=== PATIENT | female | born 1995 | race Caucasian/White ===

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

== ENCOUNTER 2017-01-17 23:26 | Emergency (ER) | payer OTHER ==
--- NOTE | 2017-01-17 23:37 | PDOC ---
History of Present Illness - General History Source: Patient Exam Limitations: No Limitations - History of Present Illness Initial Comments: 01/17/17 23:56 The patient is a 21-year-old female with no significant past medical history, and presents to the emergency department with headache, neck stiffness, and upper extremity numbness and tingling today. She describes a headache at the temples that is pressure-like and worse on the left side of her head and when she is sleeping. She also notes neck stiffness and heaviness. She states she was here 3 weeks ago for the same issue and was given a muscle relaxant and ibuprofen. She has taken the medication but her headache has returned. She also reports weakness and tingling in her upper extremities, worse on the left side. The patient denies chest pain, shortness of breath, and dizziness. The patient denies fever, chills, nausea, vomit, diarrhea and constipation. The patient denies dysuria, frequency, urgency and hematuria. LMP: Pt denies having a menstrual cycle Allergies: NKDA Past Surgical History: None reported Social History: No toxic habits reported <Sierra Garcia - Last Filed: 01/17/17 23:56> <Shyla Sinclair - Last Filed: 01/18/17 02:38> - General Stated Complaint: NUMBNESS Time Seen by Provider: 01/17/17 23:37 Past History <Sierra Garcia - Last Filed: 01/17/17 23:56> - Immunization History Immunization Up to Date: Yes - Suicide/Smoking/Psychosocial Hx Smoking Status: No Smoking History: Never smoked Have you smoked in the past 12 months: No Number of Cigarettes Smoked Daily: 0 Hx Alcohol Use: No Drug/Substance Use Hx: Yes (Marijuana) Substance Use Type: Marijuana <Shyla Sinclair - Last Filed: 01/18/17 02:38> - Past Medical History Allergies/Adverse Reactions: Allergies Allergy/AdvReac Type Severity Reaction Status Date / Time No Known Allergies Allergy Verified 01/17/17 23:53 Home Medications: Ambulatory Orders Cyclobenzaprine HCl [Flexeril 10 mg] 10 mg PO BID PRN #14 tablet 12/14/16 Ibuprofen [Motrin -] 400 mg PO QID PRN #28 tablet 12/14/16 Review of Systems - Review of Systems Able to Perform ROS?: Yes Comments:: 01/17/17 23:57 GENERAL/CONSTITUTIONAL: No fever or chills. No weakness. HEAD, EYES, EARS, NOSE AND THROAT: No change in vision. No ear pain or discharge. No sore throat. CARDIOVASCULAR: No chest pain or shortness of breath. RESPIRATORY: No cough, wheezing, or hemoptysis. GASTROINTESTINAL: No nausea, vomiting, diarrhea or constipation. GENITOURINARY: No dysuria, frequency, or change in urination. MUSCULOSKELETAL: No joint or muscle swelling or pain. No back pain. (+) Neck stiffness. SKIN: No rash NEUROLOGIC: (+) Headache. No vertigo, loss of consciousness, or change in strength. (+) Upper extremity paresthesia. ENDOCRINE: No increased thirst. No abnormal weight change. HEMATOLOGIC/LYMPHATIC: No anemia, easy bleeding, or history of blood clots. ALLERGIC/IMMUNOLOGIC: No hives or skin allergy. <Sierra Garcia - Last Filed: 01/17/17 23:56> *Physical Exam - Physical Exam Comments: 01/17/17 23:57 GENERAL: Awake, alert, and fully oriented, in no acute distress HEAD: No signs of trauma EYES: PERRLA, EOMI, sclera anicteric, conjunctiva clear ENT: Auricles normal inspection, hearing grossly normal, nares patent, oropharynx clear without exudates. Moist mucosa NECK: Normal ROM, supple, no lymphadenopathy, JVD, or masses LUNGS: Breath sounds equal, clear to auscultation bilaterally. No wheezes, and no crackles HEART: Regular rate and rhythm, normal S1 and S2, no murmurs, rubs or gallops ABDOMEN: Soft, nontender, normoactive bowel sounds. No guarding, no rebound. No masses EXTREMITIES: Normal range of motion, no edema. No clubbing or cyanosis. No cords, erythema, or tenderness NEUROLOGICAL: No C-spine tenderness or paraspinal and midline tenderness. Cranial nerves II through XII grossly intact. Normal speech, normal gait SKIN: Warm, Dry, normal turgor, no rashes or lesions noted. <Sierra Garcia - Last Filed: 01/17/17 23:56> ED Treatment Course - LABORATORY CBC & Chemistry Diagram: 01/18/17 00:15 01/18/17 00:15 <Shyla Sinclair - Last Filed: 01/18/17 02:38> Medical Decision Making - Medical Decision Making 01/17/17 23:49 a/p: 21yo female presents for eval of DAVIS -recent hx of davis that she was taking flexeril and motrin for -ran out of flexeril -neuro exam without focal deficits -poss anxiety/acute stress reaction to cause numbness -will check labs and re-eval -will medicate. 01/18/17 01:25 pt states davis resolved. feeling better. 01/18/17 01:25 ambulatory in the ED with a steady gait 01/18/17 02:35 pt feeling much better. Has appt to see [facility] on tuesday. Discussed all lab results. Pt states she has only had 1 menstrual cycle since she was 15. Discussed the need to keep her [facility] appt. Answered all questions. Pt feeling better. Stable for d/c to home. Discussed need for follow up with PMD. <Shyla Sinclair - Last Filed: 01/18/17 02:38> *DC/Admit/Observation/Transfer - Attestations Scribe Attestion: 01/18/17 00:00 Documentation prepared by Sierra Garcia, acting as medical editor for Shyla Sinclair DO. <Sierra Garcia - Last Filed: 01/17/17 23:56> - Discharge Dispostion Admit: No - Attestations Physician Attestion: 01/18/17 02:37 I, Dr. Shyla Sinclair DO, attest that this document has been prepared under my direction and personally reviewed by me in its entirety. I further attest, that it accurately reflects all work, treatment, procedures and medical decision -making performed by me. <Shyla Sinclair - Last Filed: 01/18/17 02:38> Diagnosis at time of Disposition: Tension headache - Discharge Dispostion Disposition: HOME Condition at time of disposition: Stable - Referrals Referrals: Ainsley Brooks MD [Primary Care Provider] - Rubin Lorenzo MD [Staff Physician] - - Patient Instructions Printed Discharge Instructions: DI for Headache Additional Instructions: Please keep your appt with HE[facility] SERVICE WORKER for tuesday. Please follow up with your PMD. Please return to the ED with any further concerns.
[2017-01-17] MEDS ORDERED: ACETAMINOPHEN/CAFFEINE/BUTALBITAL 1 TAB PO ONE (23:46)
[2017-01-17] MEDS ORDERED: METOCLOPRAMIDE HCL INJECTION 10 MG/2 ML VIAL IVPUSH ONE (23:46)
[2017-01-17] MEDS ORDERED: SODIUM CHLORIDE 0.9% 1000 ML INFUS.BAG IV ONE (23:46)
[2017-01-18] MEDS ORDERED: ACETAMINOPHEN/CAFFEINE/BUTALBITAL 1 TAB ONE
[2017-01-18] MEDS ORDERED: METOCLOPRAMIDE HCL INJECTION 10 MG/2 ML VIAL ONE
[2017-01-18 00:02] VITALS: BP 150/82; PULSE 72; TEMP 97.9; BMI 37.3
[2017-01-18 00:25] LABS: BASOPHIL 0.4 % (0-2.0); EOSINOPHIL 0.5 % (0-4.5); MCH 29.5 pg (25.7-33.7); MCHC 33.9 g/dl (32.0-36.0); MEAN CELL VOLUME 86.9 fl (80-96); MEAN PLT VOLUME 7.7 fl (7.5-11.1); NEUTROPHILS 72.3 % (42.8-82.8); PLATELET COUNT 287 K/MM3 (134-434); RDW 12.9 % (11.6-15.6); WHITE BLOOD COUNT 11.8 K/mm3 (4.0-10.0)
[2017-01-18 00:58] LABS: URINE APPEARANCE CLEAR; URINE BILIRUBIN NEGATIVE (NEGATIVE); URINE BLOOD NEGATIVE (NEGATIVE); URINE COLOR STRAW; URINE GLUCOSE (UA) NEGATIVE (NEGATIVE); URINE KETONE NEGATIVE (NEGATIVE); URINE NITRITE NEGATIVE (NEGATIVE); URINE PROTEIN NEGATIVE (NEGATIVE); URINE UROBILINOGEN NEGATIVE mg/dL (0.2-1.0)
[2017-01-18 01:01] LABS: ALBUMIN 4.2 g/dl (3.4-5.0); ANION GAP 7 (8-16); BILIRUBIN,TOTAL 0.5 mg/dL (0.2-1.0); CALCIUM 8.5 mg/dL (8.5-10.1); CO2 29 mmol/L (21-32); CREATININE 0.5 mg/dL (0.55-1.02); GLUCOSE,RANDOM 89 mg/dL (74-106); SGPT/ALT 33 U/L (12-78); TOT PROT 8.3 g/dl (6.4-8.2)
[2017-01-18 01:02] LABS: ALK PHOS 102 U/L (45-117)
[2017-01-18 01:03] LABS: SGOT/AST 22 U/L (15-37)
[2017-01-18 10:32] LABS: URINE LEUK ESTERASE TRACE (NEGATIVE)
[2017-01-18 10:33] LABS: URINE BACTERIA FEW /hpf (NEGATIVE); URINE RBC 0-3 /hpf (0-3); URINE WBC 0-3 /hpf (3-5)
== END 2017-01-18 02:42 | disposition home or self-care (01) ==
LOC: JER 23:26
DX: G44.209 Tension-type headache, unspecified, not intractable (principal)
CPT/HCPCS: 36415; 80053; 81003; 81015; 84703; 85025; 99283-25

== ENCOUNTER 2017-01-21 21:21 | Emergency (ER) | payer OTHER ==
[2017-01-21 21:28] VITALS: BP 149/59; PULSE 103; TEMP 98; BMI 36.6
--- NOTE | 2017-01-21 21:37 | PDOC ---
History of Present Illness <Linnea Gray - Last Filed: 01/21/17 21:55> - General History Source: Patient Exam Limitations: No Limitations - History of Present Illness Initial Comments: 01/21/17 21:59 The patient is a 21 year old female, with a significant past medical history of frequent headaches, who presents to the emergency department with a headache for approximately 2 weeks. The patient reports her headache is localized at the center of her head, and describes it as a pressure. Patient reports taking 1 Ibuprofen earlier today with no relief of headache. She reports associated weakness, but denies any dizziness, lightheadedness, numbness, tingling, changes in vision, neck or back pain. Patient reports presenting to the ED with similar symptoms on 01/17/17, where she was given Ibuprofen with relief of headache. Patient denies any chest pain, shortness of breath, diaphoresis, or palpitations. She denies any fever, chills, nausea, vomiting, diarrhea, constipation, or changes in urination patterns. Patient denies having a menstrual cycle(only recalls MP at age 15). Patient reports following up with [facility] on 01/19/17, where she had bloodwork done and has not yet received results for. Allergies: NKDA Past Surgical History: None reported. Social History: Non smoker. No ETOH or recreational drug use. <Aline Garcia - Last Filed: 01/21/17 22:01> - General Chief Complaint: Headache Stated Complaint: HEADACHE Time Seen by Provider: 01/21/17 21:34 Past History - Past Medical History Anemia: No Asthma: No Cancer: No Cardiac Disorders: No CVA: No COPD: No DVT: No Dementia: No Diabetes: No Dialysis: No GI Disorders: No Disorders: No HTN: No Hypercholesterolemia: No Kidney Stones: No Liver Disease: No Psychiatric Problems: No Seizures: No Thyroid Disease: No Lung CA: No - Immunization History Immunization Up to Date: Yes - Suicide/Smoking/Psychosocial Hx Smoking Status: No Smoking History: Never smoked Have you smoked in the past 12 months: No Number of Cigarettes Smoked Daily: 0 Hx Alcohol Use: No Drug/Substance Use Hx: Yes (Marijuana) Substance Use Type: Marijuana <Linnea Gray - Last Filed: 01/21/17 21:55> <Aline Garcia - Last Filed: 01/21/17 22:01> - Past Medical History Allergies/Adverse Reactions: Allergies Allergy/AdvReac Type Severity Reaction Status Date / Time No Known Allergies Allergy Verified 01/21/17 21:28 Home Medications: Ambulatory Orders Cyclobenzaprine HCl [Flexeril 10 mg] 10 mg PO BID PRN #14 tablet 12/14/16 Ibuprofen [Motrin -] 400 mg PO QID PRN #28 tablet 12/14/16 Review of Systems - Review of Systems Able to Perform ROS?: Yes Comments:: 01/21/17 21:59 GENERAL/CONSTITUTIONAL: Yes weakness. No fever or chills. HEAD, EYES, EARS, NOSE AND THROAT: No change in vision. No ear pain or discharge. No sore throat. CARDIOVASCULAR: No chest pain or shortness of breath. RESPIRATORY: No cough, wheezing, or hemoptysis. GASTROINTESTINAL: No nausea, vomiting, diarrhea or constipation. GENITOURINARY: No dysuria, frequency, or change in urination. MUSCULOSKELETAL: No joint or muscle swelling or pain. No neck or back pain. SKIN: No rash NEUROLOGIC: Yes headache. No numbness, tingling, vertigo, loss of consciousness. ENDOCRINE: No increased thirst. No abnormal weight change. HEMATOLOGIC/LYMPHATIC: No anemia, easy bleeding, or history of blood clots. ALLERGIC/IMMUNOLOGIC: No hives or skin allergy. <Aline Garcia - Last Filed: 01/21/17 22:01> *Physical Exam - Vital Signs Last Vital Signs Temp Pulse Resp BP Pulse Ox 98 F 103 H 20 149/59 100 01/21/17 21:26 01/21/17 21:26 01/21/17 21:26 01/21/17 21:26 01/21/17 21:26 <Linnea Gray - Last Filed: 01/21/17 21:55> - Vital Signs Last Vital Signs Temp Pulse Resp BP Pulse Ox 98 F 103 H 20 149/59 100 01/21/17 21:26 01/21/17 21:26 01/21/17 21:26 01/21/17 21:26 01/21/17 21:26 - Physical Exam Comments: 01/21/17 22:00 GENERAL: Morbidly obese. The patient is awake, alert, and fully oriented, in no acute distress. HEAD: Normal with no signs of trauma. EYES: Pupils equal, round and reactive to light, extraocular movements intact, sclera anicteric, conjunctiva clear with no pallor. ENT: Ears normal, nares patent, oropharynx clear without exudates. Moist mucous membranes. NECK: Normal range of motion, supple without lymphadenopathy, JVD, or masses. LUNGS: Breath sounds equal, clear to auscultation bilaterally. No wheeze/ crackles. HEART: Regular rate and rhythm, normal S1 and S2 without murmur or rub. ABDOMEN: Soft/nontender/nondistended. BS wnl. No guarding or rebound. No palpable masses. No hepatosplenomegaly. EXTREMITIES: Normal range of motion, no edema. No clubbing or cyanosis. No cords, erythema, or tenderness. NEUROLOGICAL: Cranial nerves II through XII grossly intact. Normal speech, normal gait. PSYCH: Normal mood, normal affect. SKIN: Warm, Dry, normal turgor, no rashes or lesions noted. <Aline Garcia - Last Filed: 01/21/17 22:01> Medical Decision Making - Medical Decision Making 01/21/17 21:55PM PT COMES WITH TENSION HEADACHE, SHE HAS BEEN TAKING 200 MG MOTRIN AND SHE IS OVERWEIGHT AND LIKELY NEEDS 400 TO 600MG FOR HEADACHE CONTROL. PT IS ANXIOUS AND SHE HAS BEEN HERE IN THE PAST RECENTLY FOR THE SAME. SHE HAS AN APPOINTMENT [facility] LATER THIS WEEK. SHE WILL BE SENT HOME WITH A COCKTAIL OF MEDS. HOME WITH REGULAR OTC MEDS. <Linnea Gray - Last Filed: 01/21/17 21:55> *DC/Admit/Observation/Transfer - Discharge Dispostion Admit: No <Linnea Gray - Last Filed: 01/21/17 21:55> - Attestations Scribe Attestion: 01/21/17 22:01 Documentation prepared by Aline Garcia, acting as registered medical assistant for Linnea Gray MD. <Aline Garcia - Last Filed: 01/21/17 22:01> Diagnosis at time of Disposition: Panic attack, Tension headache - Discharge Dispostion Disposition: HOME Condition at time of disposition: Stable - Referrals Referrals: Rubin Lorenzo MD [Staff Physician] -
[2017-01-21] MEDS ORDERED: METOCLOPRAMIDE HCL INJECTION 10 MG/2 ML VIAL ONE (21:48)
[2017-01-21] MEDS ORDERED: ACETAMINOPHEN/CAFFEINE/BUTALBITAL 1 TAB ONE (21:48)
[2017-01-21] MEDS ORDERED: diphenhydrAMINE HCL 25 MG CAPSULE (FP) PO ONE ×2 (21:49→21:50)
[2017-01-21] MEDS ORDERED: ACETAMINOPHEN/CAFFEINE/BUTALBITAL 1 TAB PO ONE (21:50)
[2017-01-21] MEDS ORDERED: METOCLOPRAMIDE HCL INJECTION 10 MG/2 ML VIAL IM ONE (21:51)
== END 2017-01-21 22:29 | disposition home or self-care (01) ==
LOC: JER 21:21
DX: G44.209 Tension-type headache, unspecified, not intractable (principal); F41.0 Panic disorder [episodic paroxysmal anxiety]
CPT/HCPCS: 99281-25

== ENCOUNTER 2017-01-28 02:15 | Emergency (ER) | payer OTHER ==
[2017-01-28 03:06] VITALS: BP 143/73; PULSE 65; TEMP 98.1; BMI 37.3
--- NOTE | 2017-01-28 03:31 | PDOC ---
History of Present Illness - General Chief Complaint: Headache Stated Complaint: HEADACHE Time Seen by Provider: 01/28/17 02:57 History Source: Patient - History of Present Illness Initial Comments: 01/28/17 03:30 Patient is a 21 y.o. female with no known PMH who presents with a 3 week h/o frontal, tightening headaches that start approximately 30 minutes after she wakes up and continue throughout the day. Patient denies any associated chest pain, shortness of breath, visual changes, altered mental status or vomiting. Patient states Motrin usually relieves her headaches however tonight she woke up from sleep with her headache. Patient notes she has an appointment with a neurologist tomorrow for follow up. Patient further notes she has never had a menstrual period and she was recently evaluated by a justice professor including ultrasound. Past History - Past Medical History Allergies/Adverse Reactions: Allergies Allergy/AdvReac Type Severity Reaction Status Date / Time No Known Allergies Allergy Verified 01/21/17 21:28 Home Medications: Ambulatory Orders Ibuprofen [Motrin -] 400 mg PO QID PRN #28 tablet 12/14/16 Anemia: No Asthma: No Cancer: No Cardiac Disorders: No CVA: No COPD: No DVT: No Dementia: No Diabetes: No Dialysis: No GI Disorders: No Disorders: No HTN: No Hypercholesterolemia: No Kidney Stones: No Liver Disease: No Psychiatric Problems: No Seizures: No Thyroid Disease: No Lung CA: No - Immunization History Immunization Up to Date: Yes - Suicide/Smoking/Psychosocial Hx Smoking Status: No Smoking History: Never smoked Have you smoked in the past 12 months: No Number of Cigarettes Smoked Daily: 0 Information on smoking cessation initiated: No Hx Alcohol Use: No Drug/Substance Use Hx: No Substance Use Type: Marijuana Review of Systems - Review of Systems Constitutional: No: Chills, Fever HEENTM: No: Blurred Vision, Double Vision Respiratory: No: Shortness of Breath Cardiac (ROS): No: Chest Pain All Other Systems: Reviewed and Negative *Physical Exam - Vital Signs Last Vital Signs Temp Pulse Resp BP Pulse Ox 98.1 F 65 17 143/73 99 01/28/17 03:03 01/28/17 03:03 01/28/17 03:03 01/28/17 03:03 01/28/17 03:03 - Physical Exam General Appearance: Yes: Nourished, Obese Respiratory/Chest: positive: Lungs Clear Cardiovascular: positive: S1, S2 Neurologic: positive: air export coordinator II-XII NML intact, Fully Oriented, Alert, Motor Strength 5/5 Medical Decision Making - Medical Decision Making 01/28/17 03:51 Patient is a 21 y.o. female who presents with headache consistent with her tension headaches. As patient has a h/o of similar headaches and no recent trauma clinical suspicion for acute intracranial process is low. PLAN: 1. Toradol 2. Referral to endocrinology @ discharge as patient possibly has PCOS with hormonal dysregulation contributing to her headaches Reassess 01/28/17 05:29 Patient awakened from sleep, states pain is resolved. Counseled on importance of keeping neurologist appointment today. Discharged with endocrinology referral and return precautions. *DC/Admit/Observation/Transfer Diagnosis at time of Disposition: Headache, tension-type - Discharge Dispostion Disposition: HOME Condition at time of disposition: Good Admit: No - Referrals Referrals: Luis Alberto Arauz MD [Staff Physician] - - Patient Instructions Additional Instructions: You were evaluated and treated today for a headache. Please keep your previously scheduled neurology appointment later today as they will be able to provide you with effective diagnosis and treatment of your repeated headaches. Also, as you expressed a concern for non-onset of menstruation, we are providing you with contact information for an jewelry mechanic. Please return to the Emergency Department for any worsening or concerning symptoms.
[2017-01-28] MEDS ORDERED: KETOROLAC TROMETHAMINE 60 MG/2 ML VIAL IM ONE (03:34)
[2017-01-28] MEDS ORDERED: KETOROLAC TROMETHAMINE 60 MG/2 ML VIAL ONE (03:36)
--- NOTE | 2017-01-28 03:40 | PDOC ---
Attending Attestation - Resident Resident Name: Rosa Beaver - ED Attending Attestation I have performed the following: I have examined & evaluated the patient, The case was reviewed & discussed with the resident, I agree w/resident's findings & plan, Exceptions are as noted - HPI HPI: 01/28/17 03:38 headache for several weeks. Seeing neurology in the morning. c/o pain - Physicial Exam PE: 01/28/17 03:39 *Physical Exam General Appearance: Yes: Appropriately Dressed. No: Apparent Distress, Intoxicated HEENT: positive: EOMI, [place], Normal ENT Inspection, Normal Voice, TMs Normal, Pharynx Normal. negative: Pale Conjunctivae, Photophobia, Scleral Icterus (R), Scleral Icterus (L) Neck: positive: Trachea midline, Normal Thyroid, Supple. negative: Tender, Rigid, Carotid bruit, Stridor, Lymphadenopathy (R), Lymphadenopathy (L), Thyromegaly Respiratory/Chest: positive: Lungs Clear, Normal Breath Sounds. negative: Chest Tender, Respiratory Distress, Accessory Muscle Use, Labored Respiration, RES, Crackles, Rales, Rhonchi, Stridor, Wheezing, Dullness Cardiovascular: positive: Regular Rhythm, Regular Rate, S1, S2. negative: Edema , JVD, Murmur, Bradycardia, Tachycardia Vascular Pulses: Dorsalis-Pedis (R): 2+, Doralis-Pedis (L): 2+ Gastrointestinal/Abdominal: positive: Normal Bowel Sounds, Flat, Soft. negative : Tender, Organomegaly, Pulsatile Mass, Increased Bowel Sounds, Decreased BS, Distended, Guarding, Rebound, Hernia, Hepatomegaly, Spleenomegaly Lymphatic: negative: Adenopathy, Tenderness Musculoskeletal: positive: Normal Inspection. negative: CVA Tenderness, Decreased Range of Motion Extremity: positive: Normal Capillary Refill, Normal Inspection, Normal Range of Motion, Pelvis Stable. negative: Tender, Pedal Edema, Swelling, Erythema Integumentary: positive: Normal Color, Dry, Warm. negative: Cyanotic, Erythema , Jaundice, Rash Neurologic: positive: machine engraver II-XII NML intact, Fully Oriented, Alert, Normal Mood/ Affect, Motor Strength 5/5. negative: EOM Palsy, Facial Droop, Sensory Deficit - Medical Decision Making 01/28/17 05:36 Pt feeling better and will be discharge to follow up with her neurology appointment. Pt referred to endo for evaluation of lack of menses
== END 2017-01-28 06:12 | disposition home or self-care (01) ==
LOC: JER 02:15
PROC: 3E0233Z Introduction of Anti-inflammatory into Muscle, Percutaneous Approach (ICD-10-PCS; principal; 2017-01-28)
DX: G44.209 Tension-type headache, unspecified, not intractable (principal)
CPT/HCPCS: 96372; 99281-25

== ENCOUNTER 2018-03-26 20:37 | Emergency (ER) | payer OTHER ==
[2018-03-26 20:41] VITALS: BP 127/55; PULSE 60; TEMP 97.9; BMI 32.4
[2018-03-26] MEDS ORDERED: ACETAMINOPHEN 500 MG TABLET (FP) PO ONE (20:54)
[2018-03-26] MEDS ORDERED: ACETAMINOPHEN 500 MG TABLET (FP) ONE ×2 (20:58→21:11)
--- NOTE | 2018-03-26 20:58 | PDOC ---
History of Present Illness - General Chief Complaint: Headache Stated Complaint: HEADACHE Time Seen by Provider: 03/26/18 20:53 - History of Present Illness Initial Comments: 03/26/18 20:57 22-year-old female without comorbidities presents for evaluation of headaches times one week. Unrelieved with Tylenol and Motrin. She has never had headaches like this in her life. No systemic symptoms. Past History - Past Medical History Allergies/Adverse Reactions: Allergies Allergy/AdvReac Type Severity Reaction Status Date / Time No Known Allergies Allergy Verified 03/26/18 20:41 Home Medications: Ambulatory Orders Acetaminophen [Tylenol -] 1,000 mg PO Q6H 03/26/18 Anemia: No Asthma: No Cancer: No Cardiac Disorders: No CVA: No COPD: No DVT: No Dementia: No Diabetes: No Dialysis: No GI Disorders: No Disorders: No HTN: No Hypercholesterolemia: No Kidney Stones: No Liver Disease: No Psychiatric Problems: No Seizures: No Thyroid Disease: No Lung CA: No - Immunization History Immunization Up to Date: Yes - Suicide/Smoking/Psychosocial Hx Smoking Status: No Smoking History: Never smoked Have you smoked in the past 12 months: No Number of Cigarettes Smoked Daily: 0 Hx Alcohol Use: No Drug/Substance Use Hx: No Substance Use Type: None, Marijuana Review of Systems - Review of Systems Constitutional: No: Fever Neurological: Yes: Headache *Physical Exam - Vital Signs Last Vital Signs Temp Pulse Resp BP Pulse Ox 97.9 F 60 18 127/55 L 100 03/26/18 20:39 03/26/18 20:39 03/26/18 20:39 03/26/18 20:39 03/26/18 20:39 - Physical Exam Comments: 03/26/18 20:58 HEAD: NC/AT EYES: Conjuntiva clear EOMI PERRL Ears: Canals and TM's normal NOSE: No d/c THROAT: Moist mucous membrances, oral pharanx clear, uvula midline NECK: Supple without adenopathy CARDIAC: S1 S2 LUNGS: CTA Full and Equal breath sounds ABDOMEN: Soft NT ND MS: Full ROM in all joints without edema NEUROLOGIC: No gross sensory or motor deficits, NVID SKIN: Normal color and temperature no lesions or rashes Moderate Sedation - Procedure Monitoring Vital Signs: Procedure Monitoring Vital Signs Temperature 97.9 F 03/26/18 20:39 Pulse Rate 60 03/26/18 20:39 Respiratory Rate 18 03/26/18 20:39 Blood Pressure 127/55 L 03/26/18 20:39 O2 Sat by Pulse Oximetry (%) 100 03/26/18 20:39 *DC/Admit/Observation/Transfer Diagnosis at time of Disposition: Headache - Discharge Dispostion Disposition: HOME Condition at time of disposition: Stable Decision to Admit order: No - Referrals Referrals: Brandon Green MD [Staff Physician] - - Patient Instructions Printed Discharge Instructions: DI for Headache Additional Instructions: Please take Tylenol Motrin as directed for headache. Do not take any further anti-inflammatories until tomorrow. Return to the emergency room should symptoms worsen or go unresolved. Follow-up with neurology in 2-3 days for further evaluation and treatment options of your headaches - Post Discharge Activity
[2018-03-26] MEDS ORDERED: KETOROLAC TROMETHAMINE 60 MG/2 ML VIAL IM ONE (22:27)
[2018-03-26] MEDS ORDERED: KETOROLAC TROMETHAMINE 60 MG/2 ML VIAL ONE (22:31)
== END 2018-03-26 23:16 | disposition home or self-care (01) ==
LOC: JERFT 20:37
PROC: 3E0233Z Introduction of Anti-inflammatory into Muscle, Percutaneous Approach (ICD-10-PCS; principal; 2018-03-26)
DX: R51 Headache (principal)
CPT/HCPCS: 70450-TC; 84703; 99281-25

== ENCOUNTER 2018-06-15 21:18 | Emergency (ER) | payer OTHER ==
[2018-06-15] MEDS ORDERED: IBUPROFEN 600 MG TABLET (FP) PO ONE ×2 (21:28→21:34)
--- NOTE | 2018-06-15 21:28 | PDOC ---
Rapid Medical Evaluation Time Seen by Provider: 06/15/18 21:27 Medical Evaluation: Allergies Allergy/AdvReac Type Severity Reaction Status Date / Time No Known Allergies Allergy Verified 03/26/18 20:41 06/15/18 21:27 I performed a brief in-person evaluation of this patient. Chief complaint: Fever and headache x 2 days Pertinent physical exam findings: T 102.5. No focal neurologic deficits. Well- hydrated and well-appearing. I have ordered the following: Rapid flu, pgu, ibuprofen Patient will proceed to the ED for further evaluation. 06/15/18 21:29 Discharge Disposition - Diagnosis Flu-like symptoms - Referrals - Patient Instructions - Post Discharge Activity
[2018-06-15 21:29] VITALS: BP 126/66; PULSE 102; TEMP 102.5; BMI 31.6
--- NOTE | 2018-06-15 22:46 | PDOC ---
History of Present Illness - General Chief Complaint: Cold Symptoms Stated Complaint: FEVER/HEADACHE Time Seen by Provider: 06/15/18 21:27 History Source: Patient Exam Limitations: No Limitations - History of Present Illness Initial Comments: 06/15/18 22:44 HISTORY OF PRESENT ILLNESS: This is a 22-year-old woman presents emergency Department with 3 days of headaches, fever and sore throat. Patient reports she' s been taking [id number] antipyretic medication which is helped with the fevers and pain. Patient reports the throat started as a faints irritation but is slowly graduated to a sharp scratching sensation. Patient denies any change in her voice. Patient is eating and drinking normally without any difficulty. No recent travel or sick contacts. PAST MEDICAL HISTORY: Denies past medical history SURGICAL HISTORY: Denies ALLERGIES: No known drug allergies REVIEW OF SYSTEMS General/Constitutional: (+) fever or chills. Denies weakness, weight change. HEENT: Denies change in vision. Denies ear pain or discharge. (+) sore throat. Cardiovascular: Denies chest pain or shortness of breath. Respiratory: Denies cough, wheezing, or hemoptysis. Gastrointestinal: Denies nausea, vomiting, diarrhea or constipation. Denies rectal bleeding. Genitourinary: Denies dysuria, frequency, or change in urination. Musculoskeletal: Denies joint or muscle swelling or pain. Denies neck or back pain. Skin and breasts: Denies rash or easy bruising. Neurologic: Frontal headache. Denies vertigo, loss of consciousness, or loss of sensation. Psychiatric: Denies depression or anxiety. Endocrine: Denies increased thirst. Denies abnormal weight change. Hematologic/Lymphatic: Denies anemia, easy bleeding, or history of blood clots. Allergic/Immunologic: Denies hives or skin allergy. Denies latex allergy. PHYSICAL EXAM General Appearance: Well-appearing, appropriately dressed. No apparent distress , no intoxication. HEENT: EOMI, PERRLA, normal ENT inspection, normal voice, TMs normal. No conjunctival pallor. No photophobia, scleral icterus. +2 erythematous tonsils present bilaterally with right greater than left. Exudate present on the right tonsil. There are no lesions within the oropharynx. Neck: Supple. Trachea midline. No tenderness, rigidity, carotid bruit, stridor , or thyromegaly. Tender anterior cervical lymphadenopathy present. Respiratory/Chest: Lungs CTAB. No shortness of breath, chest tenderness, respiratory distress, accessory muscle use. No crackles, rales, rhonchi, stridor , wheezing, dullness Cardiovascular: RRR. S1, S2. No JVD, murmur, bradycardia, tachycardia. Vascular Pulses: Dorsalis-Pedis (R): 2+, Dorsalis-Pedis (L): 2+ Gastrointestinal/Abdominal: Normal bowel sounds. Abdomen soft, non-distended. No tenderness or rebound tenderness. No organomegaly, pulsatile mass, guarding, hernia, hepatomegaly, splenomegaly. Lymphatic: No adenopathy, tenderness. Musculoskeletal/Extremities: Normal inspection. FROM of all extremities, normal capillary refill. Pelvis Stable. No CVA tenderness. No tenderness to extremities, pedal edema, swelling, erythema or deformity. Integumentary: Appropriate color, dry, warm. No cyanosis, erythema, jaundice or rash Neurologic: mental hygienist II-XII intact. Fully oriented, alert. Appropriate mood/affect. Motor strength 5/5. No appreciable EOM palsy, facial droop or sensory deficit. Past History - Past Medical History Allergies/Adverse Reactions: Allergies Allergy/AdvReac Type Severity Reaction Status Date / Time No Known Allergies Allergy Verified 03/26/18 20:41 Home Medications: Ambulatory Orders Acetaminophen [Tylenol -] 1,000 mg PO Q6H 03/26/18 Amoxicillin - [Amoxicillin 500mg Capsule -] 500 mg PO BID #20 capsule 06/15/18 Anemia: No Asthma: No Cancer: No Cardiac Disorders: No CVA: No COPD: No DVT: No Dementia: No Diabetes: No Dialysis: No GI Disorders: No Disorders: No HTN: No Hypercholesterolemia: No Kidney Stones: No Liver Disease: No Psychiatric Problems: No Seizures: No Thyroid Disease: No Lung CA: No - Immunization History Immunization Up to Date: Yes - Suicide/Smoking/Psychosocial Hx Smoking Status: No Smoking History: Never smoked Have you smoked in the past 12 months: No Number of Cigarettes Smoked Daily: 0 Hx Alcohol Use: No Drug/Substance Use Hx: No Substance Use Type: None, Marijuana *Physical Exam - Vital Signs Last Vital Signs Temp Pulse Resp BP Pulse Ox 102.5 F H 102 H 18 126/66 100 06/15/18 21:26 06/15/18 21:26 06/15/18 21:26 06/15/18 21:26 06/15/18 21:26 Moderate Sedation - Procedure Monitoring Vital Signs: Procedure Monitoring Vital Signs Temperature 102.5 F H 06/15/18 21:26 Pulse Rate 102 H 06/15/18 21:26 Respiratory Rate 18 06/15/18 21:26 Blood Pressure 126/66 06/15/18 21:26 O2 Sat by Pulse Oximetry (%) 100 06/15/18 21:26 ED Treatment Course - ADDITIONAL ORDERS Additional order review: Laboratory Results 06/15/18 21:36 Urine HCG, Qual Negative - Medications Given in the ED: ED Medications Discontinued Medications Generic Name Dose Route Start Last Admin Trade Name Oleg PRN Reason Stop Dose Admin Ibuprofen 600 mg 06/15/18 21:28 06/15/18 21:35 Motrin - PO 06/15/18 21:29 600 mg ONCE ONE Administration Medical Decision Making - Medical Decision Making 06/15/18 22:40 A/P: 22-year-old woman with pharyngitis for 3 days +2 tonsils present with right tonsil greater than the left. Exudate present to the right tonsil Uvula midline Tender anterior cervical lymphadenopathy present Halitosis present Clinically the patient has streptococcal pharyngitis. I will send a culture but even if rapid strep is negative I would treat based on clinical presentation. Results of physical exam have been discussed with the patient was verbalized understanding of discharge instructions. Prescription for amoxicillin as been sent the patient's preferred pharmacy. *DC/Admit/Observation/Transfer Diagnosis at time of Disposition: Pharyngitis Qualifiers: Pharyngitis/tonsillitis etiology: unspecified etiology Qualified Code(s): J02.9 - Acute pharyngitis, unspecified - Discharge Dispostion Disposition: HOME Condition at time of disposition: Stable Decision to Admit order: No - Prescriptions Prescriptions: Amoxicillin - [Amoxicillin 500mg Capsule -] 500 mg PO BID #20 capsule - Referrals Referrals: ON STAFF,NOT [Primary Care Provider] - - Patient Instructions Additional Instructions: Take amoxicillin as prescribed. Salt water garggles. Throw away your toothbrush in 3 days and start using a new toothbrush. No sharing of drinks, utensils or toothbrushes. Take Motrin as directed by orientation and mobility instructor's instructions. Return to ED for worsening fevers, worsening sore throat, chest pain, shortness of breath or any other concerns. - Post Discharge Activity Forms/Work/School Notes: Back to Work
== END 2018-06-15 22:47 | disposition home or self-care (01) ==
LOC: JERFT 21:18
DX: J02.9 Acute pharyngitis, unspecified (principal)
CPT/HCPCS: 84703; 87070; 87804; 87880; 99281-25

== ENCOUNTER 2018-06-17 01:43 | Emergency (ER) | payer OTHER ==
[2018-06-17] MEDS ORDERED: SODIUM CHLORIDE 1,000 ML IV STA (01:59)
[2018-06-17] MEDS ORDERED: methylPREDNISolone NA SUCC 125 MG/2 ML VIAL IVPB ONE (01:59)
--- NOTE | 2018-06-17 01:59 | PDOC ---
History of Present Illness - General Stated Complaint: ALLERGIC REACTION Time Seen by Provider: 06/17/18 01:56 History Source: Patient Exam Limitations: No Limitations - History of Present Illness Initial Comments: 06/17/18 01:59 Best Contact:[phone] PCP:0 Pmhx:0 Pshx:0 Allergies: ?Amoxicillin FH:0 Social Hx: Cigarettes/ 0 Alcohol/ 0 Drugs/0 LMP:05/29/2018 22-year-old female presents to the emergency department complaining of an ALLERGIC reaction to amoxicillin after taking her first dose this evening. Patient states she was diagnosed with streptococcal pharyngitis yesterday but took her antibiotics today. Patient states approximately 1-2 hours after taking her amoxicillin, she noticed a red rash to her upper arms, left upper leg and right lower leg and mid back. Patient endorses the rashes extremely pruritic. Patient denies fever, chills, nausea/vomiting, headache, dizziness, lightheadedness, chest pain, shortness of breath, difficulty swallowing, tongue swelling, difficulty speaking, abdominal discomfort. Patient is able to speak in full sentences without difficulties or complaints. Patient declines new food, new detergent, new soap. Patient states it was amoxicillin. Looked at yesterday's visit to the ER. Neg mono/ Neg strep [id number]: Upon discharge, patient states she forgot informed the staff that she' s been having fever intermittently 3 days/Tmax 102.2 with neck stiffness. Patient denies severe/unrelenting headache, confusion, vomiting, confusion, photophobia but states her neck is extremely sore especially when her chin touches her chest. Past History - Past Medical History Allergies/Adverse Reactions: Allergies Allergy/AdvReac Type Severity Reaction Status Date / Time No Known Allergies Allergy Verified 06/17/18 02:08 Home Medications: Ambulatory Orders Acetaminophen [Tylenol -] 1,000 mg PO Q6H 03/26/18 Amoxicillin - [Amoxicillin 500mg Capsule -] 500 mg PO BID #20 capsule 06/15/18 Methylprednisolone [Medrol Dose Reagan] 4 mg PO ASDIR #21 tablet 06/17/18 Anemia: No Asthma: No Cancer: No Cardiac Disorders: No CVA: No COPD: No DVT: No Dementia: No Diabetes: No Dialysis: No GI Disorders: No Disorders: No HTN: No Hypercholesterolemia: No Kidney Stones: No Liver Disease: No Psychiatric Problems: No Seizures: No Thyroid Disease: No Lung CA: No - Immunization History Immunization Up to Date: Yes - Suicide/Smoking/Psychosocial Hx Smoking Status: No Smoking History: Never smoked Have you smoked in the past 12 months: No Number of Cigarettes Smoked Daily: 0 Hx Alcohol Use: No Drug/Substance Use Hx: No Substance Use Type: None, Marijuana Review of Systems - Review of Systems Able to Perform ROS?: Yes Comments:: 06/17/18 02:00 CONSTITUTIONAL: Absent: fever, chills, diaphoresis, generalized weakness, malaise, loss of appetite HEENT: Absent: rhinorrhea, nasal congestion, throat pain, throat swelling, difficulty swallowing, mouth swelling, ear pain, eye pain, visual Changes CARDIOVASCULAR: Absent: chest pain, loss of consciousness, palpitations, irregular heart rate, peripheral edema RESPIRATORY: Absent: cough, shortness of breath, dyspnea with exertion, orthopnea, wheezing, stridor, hemoptysis GASTROINTESTINAL: Absent: abdominal pain, abdominal distension, nausea, vomiting, diarrhea, constipation, melena, hematochezia GENITOURINARY: Absent: dysuria, frequency, urgency, hesitancy, hematuria, flank pain, genital pain MUSCULOSKELETAL: Absent: myalgia, arthralgia, joint swelling SKIN: + rash, itching to mid back, upper arms/left upper ant leg/ right lower ant leg Absent:pallor HEMATOLOGIC/IMMUNOLOGIC: Absent: easy bleeding, easy bruising, lymphadenopathy, frequent infections ENDOCRINE: Absent: unexplained weight gain, unexplained weight loss, heat intolerance, cold intolerance NEUROLOGIC: Absent: headache, focal weakness or paresthesias, dizziness, unsteady gait, seizure, mental status changes, bladder or bowel incontinence PSYCHIATRIC: Absent: anxiety, depression, suicidal or homicidal ideation, hallucinations. 06/17/18 02:02 Is the patient limited Beninese proficient: No *Physical Exam - Physical Exam Comments: 06/17/18 02:00 GENERAL: Well developed, well nourished. Awake and alert. No acute distress. HEENT: Normocephalic, atraumatic. PERRLA, EOMI. No conjunctival pallor. Sclera are non- icteric. Moist mucous membranes. Oropharynx is clear. NECK: Supple. Full ROM. No JVD. Carotid pulses 2+ and symmetric, without bruits. No thyromegaly. No lymphadenopathy. CARDIOVASCULAR: Regular rate and rhythm. No murmurs, rubs, or gallops. Distal pulses are 2+ and symmetric. PULMONARY: No evidence of respiratory distress. Lungs clear to auscultation bilaterally. No wheezing, rales or rhonchi. ABDOMINAL: Soft. Non-tender. Non-distended. No rebound or guarding. No organomegaly. Normoactive bowel sounds. MUSCULOSKELETAL Normal range of motion at all joints. No bony deformities or tenderness. No CVA tenderness. EXTREMITIES: No cyanosis. No clubbing. No edema. No calf tenderness. SKIN: Erythema/urticaria to bilateral upper anterior arms, left upper anterior leg, right lower anterior leg, mid back without lymphangitis Warm and dry. Normal capillary refill. . No jaundice. NEUROLOGICAL: Alert, awake, appropriate. Cranial nerves 2-12 intact. No deficits to light touch and temperature in face, upper extremities and lower extremities. No motor deficits in the in face, upper extremities and lower extremities. Normoreflexic in the upper and lower extremities. Normal speech. Toes are down- going bilaterally. Gait is normal without ataxia. PSYCHIATRIC: Cooperative. Good eye contact. Appropriate mood and affect. 06/17/18 02:03 *DC/Admit/Observation/Transfer Diagnosis at time of Disposition: Urticaria due to drug allergy - Discharge Dispostion Disposition: AGAINST MEDICAL ADVICE Condition at time of disposition: Guarded Decision to Admit order: No - Prescriptions Prescriptions: Methylprednisolone [Medrol Dose Reagan] 4 mg PO ASDIR #21 tablet - Referrals Referrals: ON STAFF,NOT [Primary Care Provider] - - Patient Instructions Printed Discharge Instructions: DI for Adverse Drug Reaction -- Allergic Additional Instructions: Avoid taking amoxicillin Zyrtec during the daytime for any itch Benadryl 50 mg at bedtime as needed for any itch/this medication can cause drowsiness. Therefore, no operating heavy machinery or driving while on this medication/Benadryl. Follow-up with your physician on Tuesday. Return back to the ER for severe/ persistent or worsening symptoms Take zantac 300mg once a day for 6 days Take the medrol dose reagan/steroids for as directed on the pack It is very important that you follow with the neurologist listed on your discharge. While in the emergency department, you complained about skin rash/itch after taking amoxicillin. Upon discharge, you informed the staff that you've been having intermittent fever with neck stiffness. You adamantly refused a lumbar puncture and blood work which can assist us with the diagnosis of meningitis which can be a life-threatening condition. - Post Discharge Activity
[2018-06-17] MEDS ORDERED: FAMOTIDINE 20 MG/50 ML IVPB 20 MG/50 ML MG IVPB ONE ×2 (02:00→02:42)
[2018-06-17 02:08] VITALS: BP 146/67; PULSE 87; TEMP 98.3; BMI 30.7
[2018-06-17] MEDS ORDERED: methylPREDNISolone NA SUCC 125 MG/2 ML VIAL ONE (02:42)
== END 2018-06-17 06:23 | disposition left against medical advice (07) ==
LOC: JER 01:43
PROC: 3E033GC Introduction of Other Therapeutic Substance into Peripheral Vein, Percutaneous Approach (ICD-10-PCS; principal; 2018-06-17)
PROC: 3E033GC Introduction of Other Therapeutic Substance into Peripheral Vein, Percutaneous Approach (ICD-10-PCS; 2018-06-17)
PROC: 3E0333Z Introduction of Anti-inflammatory into Peripheral Vein, Percutaneous Approach (ICD-10-PCS; 2018-06-17)
DX: L50.0 Allergic urticaria (principal); T78.49XA Other allergy, initial encounter; T36.0X5A Adverse effect of penicillins, initial encounter; Y92.038 Other place in apartment as the place of occurrence of the external cause; X58.XXXA Exposure to other specified factors, initial encounter
CPT/HCPCS: 96365; 96375; 99281-25; J7030